=== PATIENT | male | born 1960 | race African-American/Black ===

== ENCOUNTER 2017-12-22 12:03 | Observation (INO) | payer BC, MEDICARE ==
[~2017-12-22] VITALS: Ht 175.3 cm; Wt 87.0 kg
[~2017-12-22 12:03] MED LIST: ASPI325T24 PO; DIOV320T PO; GLYB1TAB51 PO; HYDR-2768 PO; METF-324 PO; PIOG45 PO
[2017-12-22 12:09] VITALS: BP 166/89; PULSE 93; RESP 16; TEMP 97.8; O2SAT 100
[2017-12-22] MEDS ORDERED: SODIUM CHLORIDE 0.9% FLUSH 10 ML FLUSH IVF PRN (12:30)
[2017-12-22] MEDS ORDERED: ASPIRIN 81 MG CHEW TAB PO ONE (12:30)
[2017-12-22] MEDS ORDERED: SODIUM CHLORID 0.9% 500 ML INJ 500 ML IV ONE (12:30)
[2017-12-22] MEDS ORDERED: NITROGLYCERIN 0.4 MG SL 25 TABS/BTL SL ONE (12:30)
[2017-12-22 12:37] VITALS: O2SAT 97
--- NOTE | 2017-12-22 12:47 | PD ---
HPI Chief Complaint: Chest Pain Time Seen by Provider: 12:27 Travel History International Travel<30 days: No Contact w/Intl Traveler<30days: No Traveled to known affect area: No History of Present Illness HPI 57-year-old male with a history of dextrocardia presents emergency department complaining of chest pain that started approximate 1 month ago. Patient states that she was lying in bed when he started coughing and then developed this chest pain. States the last day it has worsened. States this pain is located in the lower midsternal region and upper epigastric that is worse with eating and swallowing. No palliative factors. Describes his pain as intermittent and sharp, 7/10. Says he tried to drink some water this morning but this worsened his pain. Denies nausea, vomiting, diarrhea. Says he is felt mildly short of breath but only associated with eating. Says he has a history of this pain approximately 6 months ago with similar characteristics lasting 1-2 months and resolving on its own. Patient denies history of cardiac or pulmonary disease. Says he has a history of diabetes, hypertension, hyperlipidemia. Does not currently smoke. Says he does not drink alcohol. He follows [place] Gr[place]. Says his last colonoscopy was 4 years ago and is due for another. He has never had an endoscopy. Says his lower extremities have been swelling however, says that his blood pressure medication is the likely culprit, per his PCP. Patient does not have family history of MT or CVA. PFSH Past Medical History Diabetes: Yes Patient Takes Glucophage: No (GLIPIZIDE) Hypertension: Yes Medical other: Yes (DEXTROCARDIA SITUS INVERSUS) Social History Alcohol Use: No Tobacco Use: No Substance Use: No Allergies-Medications (Allergen,Severity, Reaction): Coded Allergies: No Known Allergies (Unverified , 12/22/17) Reported Meds & Prescriptions Reported Meds & Active Scripts Active Pravastatin 80 Mg Tab 80 Mg PO DAILY@1600 Reported Aspirin 81 Mg Chew 81 Mg CHEW DAILY Glipizide 10 Mg Tab 20 Mg PO BIDAC Take 30 minutes before a meal Nifedipine ER 24 HR (Nifedipine) 60 Mg Tab 120 Mg PO BID Lisinopril 5 Mg Tab 5 Mg PO DAILY Review of Systems Except as stated in HPI: all other systems reviewed are Neg Physical Exam Narrative GENERAL: Well-developed, well-nourished in no apparent respiratory distress SKIN: Focused skin assessment warm/dry. HEAD: Atraumatic. Normocephalic. EYES: Pupils equal and round. No scleral icterus. No injection or drainage. ENT: No nasal bleeding or discharge. Mucous membranes pink and moist. NECK: Trachea midline. No JVD. No lymphadenopathy CARDIOVASCULAR: Regular rate and rhythm. No murmur appreciated. RESPIRATORY: No accessory muscle use. Clear to auscultation. Breath sounds equal bilaterally. GASTROINTESTINAL: Abdomen soft, non-tender, nondistended. No CVA tenderness, no tenderness palpation of chest wall MUSCULOSKELETAL: No obvious deformities. No clubbing. No cyanosis. No significant pedal edema, Homans sign negative NEUROLOGICAL: Awake and alert. No obvious cranial nerve deficits. Motor grossly within normal limits. Normal speech. PSYCHIATRIC: Appropriate mood and affect; insight and judgment normal. Data Data Last Documented VS Vital Signs Date Time Temp Pulse Resp B/P (MAP) Pulse Ox O2 Delivery O2 Flow Rate FiO2 12/22/17 14:21 87 15 164/87 (112) 99 Room Air 12/22/17 12:09 97.8 Orders Orders Electrocardiogram (12/22/17 12:28) B-Type Natriuretic Peptide (12/22/17 12:28) Ckmb (Isoenzyme) Profile (12/22/17 12:28) Complete Blood Count With Diff (12/22/17 12:) Comprehensive Metabolic Panel (12/22/17 12:28) Magnesium (Mg) (12/22/17 12:28) Prothrombin Time / Inr (Pt) (12/22/17 12:28) Act Partial Throm Time (Ptt) (12/22/17 12:28) Troponin I (12/22/17 12:28) Ecg Monitoring (12/22/17 12:28) Bilateral Bp Monitoring (12/22/17 12:28) Iv Access Insert/Monitor (12/22/17 12:28) Oximetry (12/22/17 12:28) Oxygen Administration (12/22/17 12:28) Aspirin Chew (Aspirin Chew) (12/22/17 12:30) Nitroglycerin Sl (Nitrostat Sl) (12/22/17 12:30) Sodium Chlorid 0.9% 500 Ml Inj (Ns 500 M (12/22/17 12:30) Chest, Pa & Lat (12/22/17 12:28) Urinalysis - C+S If Indicated (12/22/17 12:28) Sodium Chloride 0.9% Flush (Ns Flush) (12/22/17 12:30) CKMB (12/22/17 12:45) CKMB% (12/22/17 12:45) Nitroglycerin 2% Oint (Nitroglycerin 2% (12/22/17 14:30) Activity Bed Rest With Brp (12/22/17 14:20) Vital Signs (Adult) Q4H (12/22/17 14:20) Cardiac Rhythm .As Directed (12/22/17:20) Notify Dr: Other .PRN (12/22/17:20) Notify Dr. Parameters (12/22/17:) Ckmb (Isoenzyme) Profile (12/22/17 15:45) Ckmb (Isoenzyme) Profile (12/22/17 18:45) Troponin I (12/22/17 15:45) Troponin I (12/22/17 18:45) Electrocardiogram (12/22/17 15:45) Electrocardiogram (12/22/17 18:45) ^ Obtain (12/22/17 14:20) Speech Lang Path Therapist / Telemetry ROSALVA.Q8H (12/22/17 14:20) Admit Order (Ed Use Only) (12/22/17 14:20) Labs Laboratory Tests Test 12/22/17 12:45 White Blood Count 14.2 TH/MM3 Red Blood Count 4.29 MIL/MM3 Hemoglobin 11.5 GM/DL Hematocrit 35.0 % Mean Corpuscular Volume 81.6 FL Mean Corpuscular Hemoglobin 26.9 PG Mean Corpuscular Hemoglobin Concent 32.9 % Red Cell Distribution Width 15.6 % Platelet Count 275 TH/MM3 Mean Platelet Volume 10.0 FL Neutrophils (%) (Auto) 73.2 % Lymphocytes (%) (Auto) 18.0 % Monocytes (%) (Auto) 7.4 % Eosinophils (%) (Auto) 0.9 % Basophils (%) (Auto) 0.5 % Neutrophils # (Auto) 10.4 TH/MM3 Lymphocytes # (Auto) 2.6 TH/MM3 Monocytes # (Auto) 1.1 TH/MM3 Eosinophils # (Auto) 0.1 TH/MM3 Basophils # (Auto) 0.1 TH/MM3 CBC Comment DIFF FINAL Differential Comment Prothrombin Time 10.5 SEC Prothromb Time International Ratio 1.0 RATIO Activated Partial Thromboplast Time 26.4 SEC Blood Urea Nitrogen 20 MG/DL Creatinine 2.14 MG/DL Random Glucose 147 MG/DL Total Protein 7.9 GM/DL Albumin 3.4 GM/DL Calcium Level 8.6 MG/DL Magnesium Level 2.4 MG/DL Alkaline Phosphatase 133 U/L Aspartate Amino Transf (AST/SGOT) 18 U/L Alanine Aminotransferase (ALT/SGPT) 14 U/L Total Bilirubin 0.2 MG/DL Sodium Level 142 MEQ/L Potassium Level 3.9 MEQ/L Chloride Level 107 MEQ/L Carbon Dioxide Level 25.2 MEQ/L Anion Gap 10 MEQ/L Estimat Glomerular Filtration Rate 39 ML/MIN Total Creatine Kinase 302 U/L Creatine Kinase MB 2.5 NG/ML Troponin I LESS THAN 0.02 NG/ML B-Type Natriuretic Peptide 19 PG/ML MDM Medical Decision Making Medical Screen Exam Complete: Yes Emergency Medical Condition: Yes Differential Diagnosis Esophageal spasm, NSTEMI, angina, esophagitis, gastritis Narrative Course 57-year-old male with a history of dextrocardia presents emergency department complaining of chest pain that started approximate 1 month ago. Patient states that she was lying in bed when he started coughing and then developed this chest pain. States the last day it has worsened. States this pain is located in the lower midsternal region and upper epigastric that is worse with eating and swallowing. No palliative factors. Describes his pain as intermittent and sharp, 7/10. Says he tried to drink some water this morning but this worsened his pain. Denies nausea, vomiting, diarrhea. Says he is felt mildly short of breath but only associated with eating. Says he has a history of this pain approximately 6 months ago with similar characteristics lasting 1-2 months and resolving on its own. Patient denies history of cardiac or pulmonary disease. Says he has a history of diabetes, hypertension, hyperlipidemia. Does not currently smoke. Says he does not drink alcohol. He follows [place] Gr[place]. Says his last colonoscopy was 4 years ago and is due for another. He has never had an endoscopy. Says his lower extremities have been swelling however, says that his blood pressure medication is the likely culprit, per his PCP. Patient does not have family history of MT or CVA. Vital signs 164/87, heart rate 87, SaO2 99%, afebrile. Physical Exam findings demonstrate regular rate and rhythm without murmur, lungs clear to auscultation bilaterally, no CVA tenderness Last Impressions Chest X-Ray 12/22/17 1228 Signed Impressions: Service Date/Time: December 12:41 - CONCLUSION: 1. No acute cardiopulmonary disease. 2. Dextrocardia with situs inversus. Farhan Fowler MD Labs demonstrate leukocytosis of 14.2, mild anemia, BUN/creatinine 20/2.14, cardiac enzymes negative. No labs for comparison. 162 mg ASA, 0.4 mg sublingual nitro administered with decrease of chest pain from 7/10 to 4/10. 500 cc normal saline IV bolus administered. Second dose of nitro administered, 0.5 inch Nitro paste for chest pain Patient be admitted to the chest pain center. Patient does describe esophageal spasms or some sort of GI problem however, he does have risk factors and I would like to rule these out prior to sending home for GI workup. Diagnosis Primary Impression: Chest pain Qualified Codes: R07.89 - Other chest pain Additional Impression: Situs inversus with dextrocardia Admitting Information Admitting Physician Requests: Observation Scripts Pravastatin (Pravastatin) 80 Mg Tab 80 MG PO DAILY@1600 for Cholesterol Management, #30 TAB 0 Refills Prov: Stone Parrish 12/22/17 Condition: Stable Regina Riddle Dec 22, 2017 12:47
--- NOTE | 2017-12-22 12:49 | RADRPT ---
EXAM DATE/TIME: 12/22/2017 12:41 [facility] COMPARISON: No previous studies available for comparison. INDICATIONS : Chest pain and shortness of breath for 1 month. MEDICAL HISTORY : Hypertension. Diabetes. Dextrocardia situs inversus. SURGICAL HISTORY : None. ENCOUNTER: Initial ACUITY: 1 month PAIN SCORE: 6/10 LOCATION: Bilateral chest FINDINGS: PA and lateral views of the chest demonstrate the lungs to be symmetrically aerated without evidence of mass, infiltrate or effusion. Dextrocardia with situs in versus. The cardiomediastinal contours a re unremarkable. Osseous structures are intact. CONCLUSION: 1. No acute cardiopulmonary disease. 2. Dextrocardia with situs inversus. Farhan Fowler MD on December 22, 2017 at 12:46 Board Certified Radiologist. This report was verified electronically.
[2017-12-22] MEDS ORDERED: LISI-519 PO (12:51)
[2017-12-22] MEDS ORDERED: NIFE60TA58 PO (12:51)
[2017-12-22] MEDS ORDERED: GLIP10TA6 PO (12:51)
[2017-12-22] MEDS ORDERED: PRAV80TA2 PO ×2 (12:51→15:01)
[2017-12-22] MEDS ORDERED: ASPI-516 CHEW (12:51)
[2017-12-22 13:04] LABS: AUTOMATED NEUTROPHIL # 10.4 TH/MM3 (1.8-7.7); BASOPHIL # 0.1 TH/MM3 (0-0.2); BASOPHIL % 0.5 % (0.0-2.0); EOSINOPHIL # 0.1 TH/MM3 (0-0.4); EOSINOPHIL % 0.9 % (0.0-4.0); HEMOGLOBIN 11.5 GM/DL (13.0-17.0); LYMPHOCYTE # 2.6 TH/MM3 (1.0-4.8); MEAN CELL VOLUME 81.6 FL (80.0-100.0); MEAN CORPUSCULAR HEMOGLOBIN 26.9 PG (27.0-34.0); MEAN CORPUSCULAR HGB CONC 32.9 % (32.0-36.0); MONO % 7.4 % (0.0-8.0); MONOCYTE # 1.1 TH/MM3 (0-0.9); NEUT % 73.2 % (16.0-70.0); PLATELET COUNT 275 TH/MM3 (150-450); RED BLOOD COUNT 4.29 MIL/MM3 (4.50-5.90); RED CELL DISTRIBUTION WIDTH 15.6 % (11.6-17.2); WHITE BLOOD COUNT 14.2 TH/MM3 (4.0-11.0)
[2017-12-22 13:14] LABS: PROTHROMBIN TIME - PATIENT 10.5 SEC (9.8-11.6)
[2017-12-22 13:32] LABS: ALBUMIN 3.4 GM/DL (3.4-5.0); ALT (GPT) 14 U/L (12-78); AST (GOT) 18 U/L (15-37); BICARBONATE 25.2 MEQ/L (21.0-32.0); BLOOD UREA NITROGEN 20 MG/DL (7-18); CALCIUM 8.6 MG/DL (8.5-10.1); CHLORIDE 107 MEQ/L (98-107); CREATININE 2.14 MG/DL (0.60-1.30); GLOMERULAR FILTRATION RATE 39 ML/MIN (>89); GLUCOSE,RANDOM 147 MG/DL (74-106); MAGNESIUM 2.4 MG/DL (1.5-2.5); SODIUM (NA) 142 MEQ/L (136-145)
[2017-12-22 13:36] LABS: ALKALINE PHOSPHATASE 133 U/L (45-117); TOTAL BILIRUBIN ADULT 0.2 MG/DL (0.2-1.0); TOTAL PROTEIN 7.9 GM/DL (6.4-8.2); TROPONIN I LESS THAN 0.02 NG/ML (0.02-0.05)
[2017-12-22 14:21] VITALS: BP 164/87; PULSE 87; RESP 15; O2SAT 99
[2017-12-22] MEDS ORDERED: NITROGLYCERIN 2% OINT 1 GM PACKET TOPICAL ONE (14:30)
[2017-12-22] MEDS ORDERED: RESP: ALBUTEROL 2.5 MG/IPRATROPIUM 0.5 MG NEB (PRN) INH (15:30)
[2017-12-22] MEDS ORDERED: ACETAMINOPHEN 500 MG CPLT PO PRN (15:30)
[2017-12-22] MEDS ORDERED: cloNIDine HCL 0.1 MG TAB PO PRN (15:30)
[2017-12-22] MEDS ORDERED: ALPRAZolam 0.25 MG TAB PO PRN (15:30)
[2017-12-22] MEDS ORDERED: ONDANSETRON HCL 4 MG/2 ML VIAL IV PUSH PRN (15:30)
[2017-12-22] MEDS ORDERED: ACETAMINOPHEN/HYDROcodone 325 MG/7.5 MG TAB PO PRN (15:30)
--- NOTE | 2017-12-22 15:44 | HHI.HP ---
HPI Primary Care Physician [facility] Chief Complaint Chest pain History of Present Illness This is a 57-year-old male with history of dextrocardia situs inversus, diabetes , hypertension, renal insufficiency, and hyperlipidemia that presents to ED complaining of chest discomfort. He points to the center of his chest. States it has been there intermittently for the past month. This morning the discomfort just worsened. States it occurs only while eating solid foods. It does not occur every time eating solid foods but it only occurs while he eats solid food. States that he will drink a bunch of water to try to wash it down and eventually the discomfort will resolve. He has had no vomiting while doing this. The discomfort will last for a couple hours to all day long. Denies shortness of breath, nausea, or diaphoresis with the symptoms. Denies any history of CAD and cannot recall any stress tests or heart catheterization. He recently began following a design manager secondary to renal insufficiency. Denies recent illness. Denies fevers or chills. Review of Systems General: Patient denies fevers, chills, recent travel. HEENT: Patient denies headache, and sore throat. Cardiovascular: Has the chest discomfort as mentioned above. Denies sensation of heart beating rapidly or irregularly. No syncope. Denies diaphoresis. Respiratory: Denies shortness of breath or inspirational chest discomfort. Denies coughing wheezing or hemoptysis. GI: Has sensation of solid foods getting stuck while swallowing. Patient denies nausea, vomiting, diarrhea, abdominal pain, bloody stools. Musculoskeletal: Patient denies joint pain or edema. Denies calf pain or edema. Neurovascular: Patient denies numbness, tingling, weakness in extremities. Denies headache. Endocrine: Denies polyuria and polydipsia. Hematologic: Denies easy bruising. Skin: Denies rash or itching. Past Family Social History Allergies: Coded Allergies: No Known Allergies (Unverified , 12/22/17) Past Medical History Hypertension, hyperlipidemia, diabetes, dextrocardia situs inversus. Denies coronary artery disease. Past Surgical History Denies. Reported Medications Reported Meds & Active Scripts Active Pravastatin 80 Mg Tab 80 Mg PO DAILY@1600 Reported Aspirin 81 Mg Chew 81 Mg CHEW DAILY Glipizide 10 Mg Tab 20 Mg PO BIDAC Take 30 minutes before a meal Nifedipine ER 24 HR (Nifedipine) 60 Mg Tab 120 Mg PO BID Lisinopril 5 Mg Tab 5 Mg PO DAILY Active Ordered Medications Current Medications Medications (Trade) Dose Ordered Sig/Ac Route Start Time Stop Time Status Last Admin (NS Flush) 2 ml UNSCH PRN IVF 12/22/17 12:30 12/22/17 12:43 (Procardia Xl) 120 mg DAILY PO 12/23/17 09:00 (Pravachol) 80 mg DAILY@1600 PO 12/22/17 16:00 (Tylenol) 500 mg Q4H PRN PO 12/22/17 15:30 UNV ([place] 7.5-325 Mg) 1 tab Q4H PRN PO 12/22/17 15:30 UNV (Zofran Inj) 4 mg Q6H PRN IV PUSH 12/22/17 15:30 UNV (Protonix) 40 mg DAILY PO 12/23/17 09:00 UNV (Aspirin) 325 mg DAILY PO 12/23/17 09:00 UNV (Xanax) 0.25 mg Q8H PRN PO 12/22/17 15:30 UNV (Duoneb Neb) 1 ampule Q4HR NEB PRN INH 12/22/17 15:30 UNV (Catapres) 0.1 mg Q4H PRN PO 12/22/17 15:30 UNV Family History Denies family history of CAD. Social History Quit smoking in 1983 but prior to that he smoked 1 pack of cigarettes daily for about 8 years. He has had no illicit drugs or alcohol since 1983. Physical Exam Vital Signs Vital Signs Date Time Temp Pulse Resp B/P (MAP) Pulse Ox O2 Delivery O2 Flow Rate FiO2 12/22/17 14:21 87 15 164/87 (112) 99 Room Air 12/22/17 12:37 97 Room Air 12/22/17 12:37 97 Room Air 12/22/17 12:09 97.8 93 16 166/89 (114) 100 Physical Exam GENERAL: This is a well-nourished, well-developed patient, in no apparent distress. Patient speaks in clear complete sentences. Patient is pleasant. HEENT: Head is atraumatic and normocephalic. Neck is supple without lymphadenopathy and trachea is midline. No JVD or carotid bruits. CARDIOVASCULAR: Regular rate and rhythm without murmurs, gallops, or rubs. RESPIRATORY: Clear to auscultation. Breath sounds equal bilaterally. No wheezes , rales, or rhonchi. Chest wall is nontender. No use of accessory muscles. GASTROINTESTINAL: Abdomen is nontender, nondistended. Abdomen soft. No obvious pulsatile mass or bruit. No CVA tenderness. Strong femoral pulses bilaterally. Normal bowel sounds in all quadrants. MUSCULOSKELETAL: Patient is moving upper and lower extremities freely. No calf tenderness or edema, no Homans sign. Strong pulses in upper and lower extremities. NEUROLOGICAL: Patient is alert and oriented. Cranial nerves 2-12 are grossly intact. No focal deficits and speech is clear. SKIN: No rash and turgor is normal. Laboratory Laboratory Tests Test 12/22/17 12:45 White Blood Count 14.2 Red Blood Count 4.29 Hemoglobin 11.5 Hematocrit 35.0 Mean Corpuscular Volume 81.6 Mean Corpuscular Hemoglobin 26.9 Mean Corpuscular Hemoglobin Concent 32.9 Red Cell Distribution Width 15.6 Platelet Count 275 Mean Platelet Volume 10.0 Neutrophils (%) (Auto) 73.2 Lymphocytes (%) (Auto) 18.0 Monocytes (%) (Auto) 7.4 Eosinophils (%) (Auto) 0.9 Basophils (%) (Auto) 0.5 Neutrophils # (Auto) 10.4 Lymphocytes # (Auto) 2.6 Monocytes # (Auto) 1.1 Eosinophils # (Auto) 0.1 Basophils # (Auto) 0.1 CBC Comment DIFF FINAL Differential Comment Prothrombin Time 10.5 Prothromb Time International Ratio 1.0 Activated Partial Thromboplast Time 26.4 Blood Urea Nitrogen 20 Creatinine 2.14 Random Glucose 147 Total Protein 7.9 Albumin 3.4 Calcium Level 8.6 Magnesium Level 2.4 Alkaline Phosphatase 133 Aspartate Amino Transf (AST/SGOT) 18 Alanine Aminotransferase (ALT/SGPT) 14 Total Bilirubin 0.2 Sodium Level 142 Potassium Level 3.9 Chloride Level 107 Carbon Dioxide Level 25.2 Anion Gap 10 Estimat Glomerular Filtration Rate 39 Total Creatine Kinase 302 Creatine Kinase MB 2.5 Troponin I LESS THAN 0.02 B-Type Natriuretic Peptide 19 Result Diagram: 12/22/17 1245 12/22/17 1245 Imaging Last 48 hours Impressions Chest X-Ray 12/22/17 1228 Signed Impressions: Service Date/Time: December 12:41 - CONCLUSION: 1. No acute cardiopulmonary disease. 2. Dextrocardia with situs inversus. Farhan Fowler MD Course Initial EKG is sinus rhythm without significant ST segment depressions or elevations. Nonspecific T-wave changes. Caprini VTE Risk Assessment Caprini VTE Risk Assessment: No/Low Risk (score <= 1) Caprini Risk Assessment Model Point Value = 1 Point Value = 2 Point Value = 3 Point Value = 5 Age 41-60 Minor surgery BMI > 25 kg/m2 Swollen legs Varicose veins or History of unexplained or recurrent spontaneous Oral contraceptives or hormone replacement Sepsis (< 1 month) Serious lung disease, including pneumonia (< 1 month) Abnormal pulmonary function Acute myocardial infarction Congestive heart failure (< 1 month) History of inflammatory bowel disease Medical patient at bed rest Age 61-74 Arthroscopic surgery Major open surgery (> 45 min) Laparoscopic surgery (> 45 min) Malignancy Confined to bed (> 72 hours) Immobilizing plaster cast Central venous access Age >= 75 History of VTE Family history of VTE Factor V Leiden Prothrombin [id number] Lupus anticoagulant Anticardiolipin antibodies Elevated serum homocysteine Heparin-induced thrombocytopenia Other congenital or acquired thrombophilia Stroke (< 1 month) Elective arthroplasty Hip, pelvis, or leg fracture Acute spinal cord injury (< 1 month) Prophylaxis Regimen Total Risk Factor Score Risk Level Prophylaxis Regimen 0-1 Low Early ambulation 2 Moderate Order ONE of the following: *Sequential Compression Device (SCD) *Heparin 5000 units SQ BID 3-4 Higher Order ONE of the following medications: *Heparin 5000 units SQ TID *Enoxaparin/Lovenox 40 mg SQ daily (WT < 150 kg, CrCl > 30 mL/min) *Enoxaparin/Lovenox 30 mg SQ daily (WT < 150 kg, CrCl > 10-29 mL/min) *Enoxaparin/Lovenox 30 mg SQ BID (WT < 150 kg, CrCl > 30 mL/min) AND/OR *Sequential Compression Device (SCD) 5 or more Highest Order ONE of the following medications: *Heparin 5000 units SQ TID (Preferred with Epidurals) *Enoxaparin/Lovenox 40 mg SQ daily (WT < 150 kg, CrCl > 30 mL/min) *Enoxaparin/Lovenox 30 mg SQ daily (WT < 150 kg, CrCl > 10-29 mL/min) *Enoxaparin/Lovenox 30 mg SQ BID (WT < 150 kg, CrCl > 30 mL/min) AND *Sequential Compression Device (SCD) Assessment and Plan Assessment and Plan * Atypical chest pain: Patient will continue to have serial cardiac enzymes and EKGs for ruling out purposes. His symptoms seem GI possibly esophageal stricture. This was discussed with ER physician and states that that can be worked up on outpatient basis. He will be seen by Dr. Rodrigez of cardiology in the chest pain center. He will have a Lexiscan in the morning if he rules out. Likely to be discharge of a stress test is nonischemic with instructions to follow-up with PCP, GI, and nephrology. Return to ED for interval issues. * Renal insufficiency: The sounds it may be a chronic issue. He recently began following a design manager. He should continue follow-up with nephrology and discuss lisinopril with them. * Hypertension: We will hold lisinopril until he can further discuss with his design manager. * Hyperlipidemia: Continue medication. * Diabetes: Patient will be covered with sliding scale insulin coverage while in chest pain center. Resume medication at home. Follow diabetic diet. Patient is stable at this time. He is agreeable to this plan. Stone Parrish Dec 22, 2017 15:44
[2017-12-22] MEDS ORDERED: PRAVASTATIN SOD 80 MG TAB PO SCH (16:00)
[2017-12-22 16:20] LABS: BILIRUBIN, URINE NEG (NEG); BLOOD, URINE SMALL (NEG); GLUCOSE,URINE 150 mg/dL (NEG); HYALINE CAST, URINE 1 /lpf (RARE); KETONE, URINE NEG (NEG); MUCUS URINE FEW /lpf (OCC); NITRITE,URINE NEG (NEG); URINE COLOR YELLOW (YELLW/STRAW); URINE LEUKOCYTE ESTERASE NEG (NEG)
[2017-12-22 16:26] VITALS: BP 150/80; PULSE 89; RESP 17; O2SAT 100
[2017-12-22 16:46] LABS: TROPONIN I LESS THAN 0.02 NG/ML (0.02-0.05)
[2017-12-22] MEDS ORDERED: DEXTROSE 50% IN WATER 50 ML VIAL(D50) IV PUSH PRN (17:30)
[2017-12-22] MEDS ORDERED: GLUCAGON 1 MG/ML VIAL OTHER PRN (17:30)
[2017-12-22 18:34] VITALS: BP 153/80; PULSE 91; RESP 20; TEMP 98.3; O2SAT 98
[2017-12-22 19:11] LABS: TROPONIN I LESS THAN 0.02 NG/ML (0.02-0.05)
[2017-12-22 20:38] VITALS: BP 169/89; PULSE 92; RESP 18; TEMP 98.3; O2SAT 98
[2017-12-22] MEDS: INSULIN ASPART SUPPLEMENTAL SCALE SQ SCH (21:03)
[2017-12-23] VITALS: PULSE 84
[2017-12-23 04:00] VITALS: PULSE 80
[2017-12-23 04:20] VITALS: BP 142/77; PULSE 81; RESP 18; TEMP 98; O2SAT 99
[2017-12-23 07:35] LABS: AUTOMATED NEUTROPHIL # 8.1 TH/MM3 (1.8-7.7); BASOPHIL % 0.4 % (0.0-2.0); EOSINOPHIL # 0.1 TH/MM3 (0-0.4); EOSINOPHIL % 0.7 % (0.0-4.0); HEMATOCRIT 31.7 % (39.0-51.0); HEMOGLOBIN 10.5 GM/DL (13.0-17.0); LYMPH % 19.8 % (9.0-44.0); LYMPHOCYTE # 2.2 TH/MM3 (1.0-4.8); MEAN CELL VOLUME 81.2 FL (80.0-100.0); MEAN CORPUSCULAR HEMOGLOBIN 26.9 PG (27.0-34.0); MEAN CORPUSCULAR HGB CONC 33.1 % (32.0-36.0); MEAN PLATELET VOLUME 9.7 FL (7.0-11.0); MONOCYTE # 0.5 TH/MM3 (0-0.9); NEUT % 74.1 % (16.0-70.0); PLATELET COUNT 259 TH/MM3 (150-450); RED BLOOD COUNT 3.91 MIL/MM3 (4.50-5.90); WHITE BLOOD COUNT 10.9 TH/MM3 (4.0-11.0)
[2017-12-23] MEDS: INSULIN ASPART SUPPLEMENTAL SCALE SQ SCH ×2 (08:00→11:17)
[2017-12-23 08:05] LABS: BICARBONATE 26.4 MEQ/L (21.0-32.0); CALCIUM 8.4 MG/DL (8.5-10.1); CREATININE 2.1 MG/DL (0.60-1.30)
[2017-12-23 08:18] VITALS: BP 158/110; PULSE 90; RESP 20; TEMP 98.3; O2SAT 98
[2017-12-23] MEDS ORDERED: PANTOPRAZOLE SOD 40 MG DELAYED RELEASE TAB PO SCH (09:00)
[2017-12-23] MEDS ORDERED: ASPIRIN 325 MG TAB PO SCH (09:00)
[2017-12-23] MEDS ORDERED: NIFEdipine 60 MG SUSTAINED RELEASE TAB PO SCH (09:00)
[2017-12-23] MEDS ORDERED: REGADENOSON INJ 0.4 MG/5 ML SYR ONE (09:30)
[2017-12-23 10:44] VITALS: BP 171/88; PULSE 94; RESP 20; TEMP 98; O2SAT 100
--- NOTE | 2017-12-23 11:04 | RADRPT ---
EXAM DATE/TIME: 12/23/2017 09:06 [facility] COMPARISON: No previous studies available for comparison. INDICATIONS : Midsternal chest pain. Angina. DOSE: 27.2 mCi Tc99m Myoview at stress. 8.1 mCi Tc99m Myoview at rest. 0.4 mg Lexiscan STRESS SYMPTOMS: Weird feeling. EJECTION FRACTION: 46% MEDICAL HISTORY : Hypertension. Diabetes mellitus type 2. Renal disease, end stage. SURGICAL HISTORY : None. ENCOUNTER: Initial ACUITY: 1 day PAIN SCALE: 3/10 LOCATION: Midsternal chest TECHNIQUE: The patient underwent pharmacologic stress with infusion of prescribed dose. Continuous ECG tracing was monitored during stress. Gated SPECT imaging was performed after stress and conventional SPECT i maging was performed at rest. The examination was performed on a SPECT/CT scanner, both attenuation and non-corrected datasets were reviewed. FINDINGS: DISTRIBUTION: The maximum perfused segment at stress is in the septal wall. PERFUSION STUDY: The pattern of perfusion at stress is within normal limits. GATED STUDY: Mild global hypokinesia without focal wall motion are mild. CONCLUSION: 1. No significant infarction or stress-induced ischemia. 2. Mild global hypokinesia with EF of 46%. RISK CATEGORY: Intermediate (1-3% Annual Mortality Rate) Crow Patel MD on December 23, 2017 at 10:45 Board Certified Radiologist. This report was verified electronically.
--- NOTE | 2017-12-23 11:08 | HHI.DCPOC ---
Discharge Care Plan Diagnosis: (1) Chest pain (2) DM (diabetes mellitus) (3) Hypertension (4) Hyperlipidemia (5) Situs inversus with dextrocardia Goals to Promote Your Health * To prevent worsening of your condition and complications * To maintain your health at the optimal level Directions to Meet Your Goals Take your medications as prescribed Follow your dietary instruction Follow activity as directed Keep your appointments as scheduled Take your immunizations and boosters as scheduled If your symptoms worsen call your PCP, if no PCP go to Urgent Care Center or Emergency Room Smoking is Dangerous to Your Health. Avoid second hand smoke Call the 24-hour hour crisis hotline for domestic abuse at Stone Parrish Dec 23, 2017 11:08
--- NOTE | 2017-12-23 17:36 | TR ---
Date Performed: 12/23/2017 Time Performed: 09:30:51 DOCTOR: Raeann Rodrigez DRUG LIST: CLINICAL HISTORY: REASON FOR TEST: REASON FOR ENDING: OBSERVATION: CONCLUSION: Lexiscan stress test was performed under standard four minute protocol. Radionuclid e was injected one minute prior to ending the test. No electrocardiographic abormalities were present to suggest ischemia. Nuclear imaging and interpretation are pending. COMMENTS:
--- NOTE | 2017-12-23 17:38 | EKG ---
Date Performed: 12/22/2017 Time Performed: 18:44:31 PTAGE: 57 years EKG: Sinus rhythm ARM LEADS REVERSED ATYPICAL ECG Leads on left chest for history of dextrocardia Since PREVIOUS TRACING , no significant change noted PREVIOUS TRACIN12/22/2017 16.14 DOCTOR: Raeann Rodrigez Interpretating Date/Time 12/23/2017 17:38:24
--- NOTE | 2017-12-23 17:39 | EKG ---
Date Performed: 12/22/2017 Time Performed: 16:14:02 PTAGE: 57 years EKG: Sinus rhythm NONSPECIFIC T-WAVE ABNORMALITY ABNORMAL ECG lead on left chest for history of dextrocardia Since PREVIOUS TRACING , no significant change noted PREVIOUS TRACIN12/22/2017 12.19 DOCTOR: Raeann Rodrigez Interpretating Date/Time 12/23/2017 17:39:33
--- NOTE | 2017-12-23 17:42 | EKG ---
Date Performed: 12/22/2017 Time Performed: 12:19:07 PTAGE: 57 years EKG: Sinus rhythm NONSPECIFIC T-WAVE ABNORMALITY ABNORMAL ECG leads on left chest for history of dextrocardia PREVIOUS TRACING : 12/22/2017 12.18 DOCTOR: Raeann Rodrigez Interpretating Date/Time 12/23/2017 17:40:57
== END 2017-12-23 13:05 | disposition home or self-care (01) ==
LOC: NEPC 12:03 → NEDA 14:24 → NEPHCDU 19:15 → NEDA 19:20 → NEPGCP 19:23
PROVIDERS: ADMIT Internal Medicine Interventional Cardiology; ATTEND Internal Medicine Interventional Cardiology
DX: R07.89 Other chest pain (principal); R06.02 Shortness of breath; N28.9 Disorder of kidney and ureter, unspecified; I10 Essential (primary) hypertension; R94.31 Abnormal electrocardiogram [ECG] [EKG]; E78.5 Hyperlipidemia, unspecified; E11.9 Type 2 diabetes mellitus without complications; Q89.3 Situs inversus; Z79.899 Other long term (current) drug therapy; Z79.82 Long term (current) use of aspirin; Z87.891 Personal history of nicotine dependence
CPT/HCPCS: 71046; 78452; 80048; 80053; 81001; 82550; 82552; 82948; 83735; 83880; 84484; 85025; 85610; 85730; 93005; 93017; 96360; 96361; 96372; 99285; A9502; G0378; J1815; J2785; J7040